=== PATIENT | female | born 1990 | race Hispanic/Latino ===

== ENCOUNTER 2017-04-28 20:41 | Emergency (ER) | payer SELFPAY ==
[2017-04-29] MEDS ORDERED: NACL 0.9% 1000 ML 1,000 ML IV ONE (02:53)
[2017-04-29] MEDS ORDERED: REGLAN ONE (03:18)
[2017-04-29] MEDS ORDERED: REGLAN IV ONE (03:18)
[2017-04-29 03:43] LABS: Hematocrit 34.2 % (30.3-42.9); Hemoglobin 11.4 gm/dl (10.1-14.3); Mean Corpuscular HGB Conc 33 % (30-34); Mean Corpuscular Hemoglobin 30 pg (28-32); Mean Corpuscular Volume 89 fl (79-97); Platelet Count 239 K/mm3 (140-440); Red Blood Count 3.86 M/mm3 (3.65-5.03); Red Cell Distribution Width 15.3 % (13.2-15.2); White Blood Count 8.5 K/mm3 (4.5-11.0)
[2017-04-29 03:48] LABS: Basophils % (Auto) 0.3 % (0.0-1.8); Eosinophils % (Auto) 1.2 % (0.0-4.3)
[2017-04-29 03:50] LABS: Diff Status Complete
[2017-04-29 04:09] LABS: Anion Gap TNR mmol/L; Carbon Dioxide TNR mmol/L (22-30); Chloride TNR mmol/L (98-107); Potassium TNR mmol/L (3.6-5.0); Sodium TNR mmol/L (137-145)
[2017-04-29 04:10] LABS: BUN/Creatinine Ratio TNR; Blood Urea Nitrogen TNR mg/dL (7-17); Calcium TNR mg/dL (8.4-10.2); Glucose TNR mg/dL (65-100)
[2017-04-29 04:24] LABS: Bacteria,Urine 1+ /HPF (Negative); Bilirubin,Urine NEG (Negative); Blood,Urine NEG (Negative); Ketones,Urine NEG (Negative); Leukocyte Esterase,Urine TR (Negative); Nitrite,Urine NEG (Negative); Protein,Urine <15 mg/dL mg/dL (Negative); Urobilinogen,Urine < 2.0 mg/dL (<2.0)
--- NOTE | 2017-04-29 05:14 | Ultrasound Report ---
FINAL REPORT PROCEDURE: US OB TRANSVAGINAL TECHNIQUE: Real-time transvaginal sonography of the uterus, placenta, amniotic fluid, adnexa, and fetus was performed with image documentation. Measurements were obtained to determine age/size. M-mode Doppler was used to document heartbeat. CPT 37692 HISTORY: back pain, N/V COMPARISON: No prior studies are available for comparison. FINDINGS: CRL: 9.5mm, which corresponds to a gestational age of: 7weeks, 0 days. Yolk Sac: Normal. Embryonic Cardiac Activity: 156 beats per minute Gestational Sac: Normal. There is a subchorionic hematoma measuring 0.5 x 1.4 x 0.4 centimeters. Right Ovary: There is a 2.6 centimeter cyst. Left Ovary: There is a 1.4 centimeter cyst. Estimated delivery date: 12/16/2017 Comment: Complete anatomic survey at 18-20 weeks suggested. IMPRESSION: 1. Single living intrauterine gestation at approximately 7 weeks 2. EDC by US 12/16/2017..
--- NOTE | 2017-04-29 05:15 | Ultrasound Report ---
FINAL REPORT PROCEDURE: US OB LESS THAN 14 WEEKS TECHNIQUE: Real-time transabdominal sonography of the uterus, placenta, amniotic fluid, adnexa, and fetus was performed with image documentation. Measurements were obtained to determine age/size. M-mode Doppler was used to document heartbeat. HISTORY: back pain, N/V COMPARISON: No prior studies are available for comparison. FINDINGS: CRL: 9.5mm, which corresponds to a gestational age of: 7weeks, 0 days. Yolk Sac: Normal. Embryonic Cardiac Activity: 156 beats per minute Gestational Sac: Normal. There is a subchorionic hematoma measuring 0.5 x 1.4 x 0.4 centimeters. Right Ovary: There is a 2.6 centimeter cyst. Left Ovary: There is a 1.4 centimeter cyst. Estimated delivery date: 12/16/2017 Comment: Complete anatomic survey at 18-20 weeks suggested. IMPRESSION: 1. Single living intrauterine gestation at approximately 7 weeks 2. EDC by US 12/16/2017..
[2017-04-29 06:19] LABS: Alanine Aminotransferase 7 units/L (7-56); Albumin 3.4 g/dL (3.9-5); Albumin/Globulin Ratio 1.4 %; Alkaline Phosphatase 59 units/L (35-129); Anion Gap 20 mmol/L; Blood Urea Nitrogen 6 mg/dL (7-17); Calcium 7.6 mg/dL (8.4-10.2); Carbon Dioxide 17 mmol/L (22-30); Chloride 105.2 mmol/L (98-107); Glucose 88 mg/dL (65-100); Potassium 3.8 mmol/L (3.6-5.0); Sodium 138 mmol/L (137-145); Total Protein 5.8 g/dL (6.3-8.2)
--- NOTE | 2017-04-29 06:53 | Emergency Department Report ---
ED ENT HPI - General Chief complaint: Sore Throat Stated complaint: FEVER/SORE THROAT/NAUSEA Source: patient Mode of arrival: Ambulatory Limitations: No Limitations - History of Present Illness Initial comments: 27 year old female presents to ED with sore throat and painful swallowing x1 day. patient denies cough. patient also states she thinks she is and has had back pain and vomiting recently. patient states LMP: March 02. patient denies dysuria, hematuria, vaginal bleeding. patient is neurologically intact and in no acute distress. MD complaint: sore throat, other (back pain and vomiting) -: Gradual Severity: mild Quality: constant Consistency: constant Worsens with: swallowing Associated Symptoms: pain with swallowing, sore throat. denies: cough - Related Data Previous Rx's Medication Instructions Recorded Last Taken Type Nitrofurantoin [place]/M-Cryst 100 mg PO Q12HR #14 capsule 09/25/15 Unknown Rx [Macrobid CAP] oxyCODONE /ACETAMINOPHEN [Percocet 1 tab PO Q4H PRN #20 tablet 09/25/15 Unknown Rx 5/325 mg] Metoclopramide HCl [Reglan TAB] 5 mg PO TIDAC #15 tablet 04/29/17 Unknown Rx Allergies Allergy/AdvReac Type Severity Reaction Status Date / Time No Known Allergies Allergy Unverified 09/23/15 11:51 ED Dental HPI - General Chief complaint: Sore Throat Stated complaint: FEVER/SORE THROAT/NAUSEA Source: patient Mode of arrival: Ambulatory Limitations: No Limitations - Related Data Previous Rx's Medication Instructions Recorded Last Taken Type Nitrofurantoin [place]/M-Cryst 100 mg PO Q12HR #14 capsule 09/25/15 Unknown Rx [Macrobid CAP] oxyCODONE /ACETAMINOPHEN [Percocet 1 tab PO Q4H PRN #20 tablet 09/25/15 Unknown Rx 5/325 mg] Metoclopramide HCl [Reglan TAB] 5 mg PO TIDAC #15 tablet 04/29/17 Unknown Rx Allergies Allergy/AdvReac Type Severity Reaction Status Date / Time No Known Allergies Allergy Unverified 09/23/15 11:51 ED Review of Systems ROS: Stated complaint: FEVER/SORE THROAT/NAUSEA Other details as noted in HPI Constitutional: denies: chills, fever Eyes: denies: eye pain, eye discharge, vision change ENT: denies: ear pain, throat pain Respiratory: denies: cough, shortness of breath, wheezing Cardiovascular: denies: chest pain, palpitations Endocrine: no symptoms reported Gastrointestinal: nausea, vomiting. denies: abdominal pain, diarrhea Genitourinary: denies: urgency, dysuria, discharge Musculoskeletal: back pain. denies: joint swelling, arthralgia Skin: denies: rash, lesions Neurological: denies: headache, weakness, numbness, paresthesias, confusion, abnormal gait Psychiatric: denies: anxiety, depression Hematological/Lymphatic: denies: easy bleeding, easy bruising ED Past Medical Hx - Past Medical History Hx Congestive Heart Failure: No Hx Diabetes: No Hx Asthma: No Hx COPD: No - Surgical History Additional Surgical History: c sect x 3 - Social History Smoking Status: Current Every Day Smoker Substance Use Type: None - Medications Home Medications: Home Medications Medication Instructions Recorded Confirmed Last Taken Type Nitrofurantoin [place]/M-Cryst 100 mg PO Q12HR #14 capsule 09/25/15 Unknown Rx [Macrobid CAP] oxyCODONE /ACETAMINOPHEN [Percocet 1 tab PO Q4H PRN #20 tablet 09/25/15 Unknown Rx 5/325 mg] Metoclopramide HCl [Reglan TAB] 5 mg PO TIDAC #15 tablet 04/29/17 Unknown Rx ED Physical Exam - General Limitations: No Limitations General appearance: alert, in no apparent distress - Head Head exam: Present: atraumatic, normocephalic - Eye Eye exam: Present: normal appearance, EOMI - ENT ENT exam: Present: mucous membranes moist - Neck Neck exam: Present: normal inspection, full ROM. Absent: lymphadenopathy - Respiratory Respiratory exam: Present: normal lung sounds bilaterally. Absent: respiratory distress, wheezes - Cardiovascular Cardiovascular Exam: Present: regular rate, normal rhythm. Absent: systolic murmur, diastolic murmur, rubs, gallop - GI/Abdominal GI/Abdominal exam: Present: soft, normal bowel sounds. Absent: distended, tenderness, guarding - External exam: Present: normal external exam Speculum exam: Present: normal speculum exam. Absent: vaginal discharge, cervical discharge, vaginal bleeding Bi-manual exam: Present: normal bi-manual exam. Absent: cervical motion tendernes - Extremities Exam Extremities exam: Present: normal inspection, full ROM. Absent: tenderness - Back Exam Back exam: Present: normal inspection, full ROM. Absent: tenderness - Neurological Exam Neurological exam: Present: alert, oriented X3, normal gait - Psychiatric Psychiatric exam: Present: normal affect, normal mood - Skin Skin exam: Present: warm, dry, intact, normal color. Absent: rash ED Course Vital Signs 04/28/17 04/29/17 04/29/17 22:11 05:10 07:14 Temperature 99.2 F 98.9 F Pulse Rate 100 H 87 98 H Respiratory 18 16 Rate Blood Pressure 131/88 Blood Pressure 100/66 [Left] O2 Sat by Pulse 100 99 Oximetry ED Medical Decision Making - Lab Data Result diagrams: 04/29/17 03:03 04/29/17 03:03 Labs 04/29/17 04/29/17 04/29/17 03:03 03:03 03:03 WBC 8.5 RBC 3.86 Hgb 11.4 Hct 34.2 MCV 89 MCH 30 MCHC 33 RDW 15.3 H Plt Count 239 Lymph % (Auto) 20.8 [place] % (Auto) 5.2 Eos % (Auto) 1.2 Baso % (Auto) 0.3 Lymph # 1.8 [place] # 0.4 Eos # 0.1 Baso # 0.0 Add Manual Diff Complete Seg Neutrophils % 72.5 H Seg Neutrophils # 6.3 Sodium TNR Potassium TNR Chloride TNR Carbon Dioxide TNR Anion Gap TNR BUN TNR Creatinine TNR Estimated GFR TNR BUN/Creatinine Ratio TNR Glucose TNR Calcium TNR Total Bilirubin AST ALT Alkaline Phosphatase Total Protein Albumin Albumin/Globulin Ratio HCG, Qual Positive HCG, Quant Urine Color Urine Turbidity Urine pH Ur Specific [place] Urine Protein Urine Glucose (UA) Urine Ketones Urine Blood Urine Nitrite Urine Bilirubin Urine Urobilinogen Ur Leukocyte Esterase Urine WBC (Auto) Urine RBC (Auto) U Epithel Cells (Auto) Urine Bacteria (Auto) Amorphous Crystals C.trachomatis DNA (SDA) N.gonorrhoeae DNA (SDA) 04/29/17 04/29/17 04/29/17 03:03 03:03 03:26 WBC RBC Hgb Hct MCV MCH MCHC RDW Plt Count Lymph % (Auto) [place] % (Auto) Eos % (Auto) Baso % (Auto) Lymph # [place] # Eos # Baso # Add Manual Diff Seg Neutrophils % Seg Neutrophils # Sodium 138 Potassium 3.8 Chloride 105.2 Carbon Dioxide 17 L Anion Gap 20 BUN 6 L Creatinine 0.6 L Estimated GFR > 60 BUN/Creatinine Ratio 10.00 Glucose 88 Calcium 7.6 L Total Bilirubin 0.40 AST 15 ALT 7 Alkaline Phosphatase 59 Total Protein 5.8 L Albumin 3.4 L Albumin/Globulin Ratio 1.4 HCG, Qual HCG, Quant 77705 H Urine Color Yellow Urine Turbidity Clear Urine pH 7.0 Ur Specific [place] 1.008 Urine Protein <15 mg/dl Urine Glucose (UA) Neg Urine Ketones Neg Urine Blood Neg Urine Nitrite Neg Urine Bilirubin Neg Urine Urobilinogen < 2.0 Ur Leukocyte Esterase Tr Urine WBC (Auto) 2.0 Urine RBC (Auto) 1.0 U Epithel Cells (Auto) 7.0 Urine Bacteria (Auto) 1+ Amorphous Crystals Few C.trachomatis DNA (SDA) N.gonorrhoeae DNA (SDA) 04/29/17 04:55 WBC RBC Hgb Hct MCV MCH MCHC RDW Plt Count Lymph % (Auto) [place] % (Auto) Eos % (Auto) Baso % (Auto) Lymph # [place] # Eos # Baso # Add Manual Diff Seg Neutrophils % Seg Neutrophils # Sodium Potassium Chloride Carbon Dioxide Anion Gap BUN Creatinine Estimated GFR BUN/Creatinine Ratio Glucose Calcium Total Bilirubin AST ALT Alkaline Phosphatase Total Protein Albumin Albumin/Globulin Ratio HCG, Qual HCG, Quant Urine Color Urine Turbidity Urine pH Ur Specific [place] Urine Protein Urine Glucose (UA) Urine Ketones Urine Blood Urine Nitrite Urine Bilirubin Urine Urobilinogen Ur Leukocyte Esterase Urine WBC (Auto) Urine RBC (Auto) U Epithel Cells (Auto) Urine Bacteria (Auto) Amorphous Crystals C.trachomatis DNA (SDA) Not detected N.gonorrhoeae DNA (SDA) Not detected Negative strep test - Radiology Data Radiology results: report reviewed U/S Single living intrauterine gestation at approx 7 weeks. heart tones 156 beats per minute. - Medical Decision Making 27 year old female presents to ED with sore throat and back pain and vomiting. patient is approx 7 weeks with single IUP on ultrasound. patient has negative strep test. patient is stable, neurologically intact and in no acute distress. patient has recieved IV fluids and IV reglan for vomiting and no vomiting has been observed during ED visit. patient understands and agrees that she needs to follow up with [facility] for care within 24-48 hours. Critical care attestation.: If time is entered above; I have spent that time in minutes in the direct care of this critically ill patient, excluding procedure time. ED Disposition Clinical Impression: Acute viral pharyngitis, Nausea and vomiting during Disposition: [id number] TO HOME OR SELFCARE Is pt being admited?: No Does the pt Need Aspirin: No Condition: Stable Instructions: (ED) Prescriptions: Metoclopramide HCl [Reglan TAB] 5 mg PO TIDAC #15 tablet Referrals: RUPERT KAUR MD [Staff Physician] - 04/30/17 Forms: Work/School Release Form(ED)
[2017-04-29 07:15] VITALS: BP 100/66
== END 2017-04-29 07:14 | disposition home or self-care (01) ==
LOC: ED 20:41
DX: O21.9 Vomiting of pregnancy, unspecified (principal); O26.891 Other specified pregnancy related conditions, first trimester; J02.9 Acute pharyngitis, unspecified; R13.10 Dysphagia, unspecified; F17.210 Nicotine dependence, cigarettes, uncomplicated; Z3A.01 Less than 8 weeks gestation of pregnancy
CPT/HCPCS: 36415; 76801; 76817; 80048; 80053; 81001; 84702; 84703; 85025; 87116; 87210; 87430; 87591; 96361; 96374; 99284; J2765; J7030

== ENCOUNTER 2017-05-20 06:43 | Emergency (ER) | payer SELFPAY ==
[2017-05-20 07:22] VITALS: BP 125/89
[2017-05-20 07:50] LABS: Basophils % (Auto) 0.7 % (0.0-1.8); Eosinophils % (Auto) 4.5 % (0.0-4.3); Hematocrit 38.7 % (30.3-42.9); Mean Corpuscular HGB Conc 34 % (30-34); Mean Corpuscular Hemoglobin 29 pg (28-32); Mean Corpuscular Volume 87 fl (79-97); Platelet Count 285 K/mm3 (140-440); Red Blood Count 4.43 M/mm3 (3.65-5.03); Red Cell Distribution Width 14.2 % (13.2-15.2); White Blood Count 7.4 K/mm3 (4.5-11.0)
[2017-05-20 08:01] LABS: INR 0.96 (0.87-1.13); Partial Thromboplastin Time 26.1 Sec. (24.2-36.6)
[2017-05-20 08:09] LABS: Alanine Aminotransferase 12 units/L (7-56); Albumin/Globulin Ratio 1.3 %; Alkaline Phosphatase 54 units/L (35-129); Anion Gap 18 mmol/L; Blood Urea Nitrogen 12 mg/dL (7-17); Calcium 8.8 mg/dL (8.4-10.2); Carbon Dioxide 23 mmol/L (22-30); Chloride 105.7 mmol/L (98-107); Glucose 78 mg/dL (65-100); Sodium 143 mmol/L (137-145); Total Protein 7.1 g/dL (6.3-8.2)
[2017-05-20 08:10] LABS: Bacteria,Urine 2+ /HPF (Negative); Bilirubin,Urine NEG (Negative); Blood,Urine LG (Negative); Ketones,Urine NEG (Negative); Leukocyte Esterase,Urine NEG (Negative); Mucus,Urine 1+ /HPF; Nitrite,Urine NEG (Negative); Protein,Urine <15 mg/dL mg/dL (Negative); Urobilinogen,Urine < 2.0 mg/dL (<2.0)
--- NOTE | 2017-05-20 09:48 | Ultrasound Report ---
Transabdominal and transvaginal pelvic ultrasound. History: Vaginal bleeding status post elective . The patient's prior study performed on April 29 was reviewed. A viable IUP at approximately 7 weeks gestation is present on that study. Findings: There is no evidence of IUP. The endometrial echo measures 12.4 mm in thickness and is slightly heterogeneous. A subcentimeter cystic area is noted within the endometrium. The ovaries are normal in size and configuration. There is a 2.2 cm in diameter cystic mass in the right ovary. There is no fluid within the cul-de-sac. Impression: 1. Minimal heterogeneous appearance of the endometrium consistent with hemorrhage and reactive changes status post elective . 2. 2.2 cm right ovarian cyst.
== END 2017-05-20 22:00 | disposition left against medical advice (07) ==
LOC: ED 06:43
DX: O26.891 Other specified pregnancy related conditions, first trimester (principal); F41.9 Anxiety disorder, unspecified; R10.9 Unspecified abdominal pain; Z3A.01 Less than 8 weeks gestation of pregnancy; Z53.21 Procedure and treatment not carried out due to patient leaving prior to being seen by health care provider
CPT/HCPCS: 36415; 76801; 76817; 80053; 81001; 84702; 85025; 85610; 85730